=== PATIENT | male | born 1965 | race Caucasian/White ===

== ENCOUNTER 2017-02-24 10:22 | Inpatient (IN) | payer OTHER ==
[~2017-02-24] VITALS: Ht 182.9 cm; Wt 100.8 kg
[2017-02-24] VITALS (12 sets, daily range): BP systolic 114–178; BP diastolic 61–99; PULSE 77–108; RESP 14–24; TEMP 98–98.1; O2SAT 95–99
[2017-02-24] MEDS ORDERED: LORazepam 2 MG/ML VIAL ONE (10:29)
[2017-02-24] MEDS ORDERED: LORazepam 2 MG/ML VIAL IV PUSH ONE (10:30)
[2017-02-24] MEDS ORDERED: FOSPHENYTOIN INJ 1,000 MGPE in SODIUM CHLORIDE 0.9% INJ 50 ML IV ONE (10:45)
[2017-02-24] MEDS ORDERED: SODIUM CHLOR 0.9% 1000 ML INJ 1,000 ML IV SCH (10:45)
[2017-02-24] MEDS ORDERED: AMIODARONE INJ 150 MG in DEXTROSE 5% IN WATER 100ML INJ 97 ML IV ONE ×2 (10:45)
[2017-02-24] MEDS ORDERED: CANA1TAB8 PO (10:46)
--- NOTE | 2017-02-24 10:55 | RADRPT ---
EXAM DATE/TIME: 02/24/2017 10:30 [facility] COMPARISON: No previous studies available for comparison. INDICATIONS : Short of breath, seizure MEDICAL HISTORY : None. SURGICAL HISTORY : None. ENCOUNTER: Initial ACUITY: 1 day PAIN SCORE: Non-responsive. LOCATION: Bilateral chest FINDINGS: Underinflated AP view of the chest demonstrates cardiac silhouette size at the upper limits for gabriel l. There is mild airspace opacity in the lower lung zones bilaterally with appearance suggestive of a telectasis. No effusion, consolidation, or pneumothorax is visualized. Bones and soft tissues demonst rate no acute finding. CONCLUSION: Underinflated examination with atelectasis at the lung bases. Otherwise, no acute finding is identifi ed. Cardiac silhouette size is at the upper limits for normal. Roshan Hernandez MD on February 24, 2017 at 10:52 Board Certified Radiologist. This report was verified electronically.
--- NOTE | 2017-02-24 10:57 | PD ---
HPI Chief Complaint: Seizure Time Seen by Provider: 10:24 Travel History International Travel<30 days: No Contact w/Intl Traveler<30days: No Traveled to known affect area: No History of Present Illness HPI 51-year-old male was brought in by EMS for syncope, seizures and multifocal PVCs. 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 Patient started having elevated blood pressure, and started having frequent PVC and then had several seizure episodes and went unresponsive. EMS was called. Patient found to have multifocal PVCs. Patient also has recurrent seizure episodes. Patient was given Ativan IV and lidocaine IV prior to arrival. Upon arrival patient's lethargic however can answer questions appropriately. Patient denies any previous history of seizure. PFSH Past Medical History Diabetes: Yes Patient Takes Glucophage: Yes Seizures: Yes Influenza Vaccination: No Social History Alcohol Use: No Tobacco Use: No Substance Use: No Allergies-Medications (Allergen,Severity, Reaction): Coded Allergies: Daypro (Verified Allergy, Unknown, 02/24/17) Relafen (Verified Allergy, Unknown, 02/24/17) Reported Meds & Prescriptions Reported Meds & Active Scripts Active Reported Invokamet Xr (Canagliflozin-Metformin ER 24 HR) 150-1,000 mg Tab 1 Tab PO DAILY Review of Systems General / Constitutional: No: Fever Eyes: No: Visual changes HENT: No: Headaches Cardiovascular: No: Chest Pain or Discomfort Respiratory: No: Shortness of Breath Gastrointestinal: No: Abdominal Pain Genitourinary: No: Dysuria Musculoskeletal: No: Pain Skin: No Rash Neurologic: No: Weakness Psychiatric: No: Depression Endocrine: No: Polydipsia Hematologic/Lymphatic: No: Easy Bruising Physical Exam Narrative GENERAL: Well-nourished, well-developed patient. SKIN: Focused skin assessment warm/dry. HEAD: Normocephalic. EYES: No scleral icterus. No injection or drainage. Pupils 3 mm equal reactive. NECK: Supple, trachea midline. No JVD or lymphadenopathy. CARDIOVASCULAR: Regular rate and rhythm without murmurs, gallops, or rubs. RESPIRATORY: Breath sounds equal bilaterally. No accessory muscle use. GASTROINTESTINAL: Abdomen soft, non-tender, nondistended. MUSCULOSKELETAL: No cyanosis, or edema. BACK: Nontender without obvious deformity. No CVA tenderness. Neurologic exam: Patient is lethargic however answer questions appropriately. Patient can moves all extremity. No obvious focal neurological deficit. Data Data Last Documented VS Vital Signs Date Time Temp Pulse Resp B/P Pulse Ox O2 Delivery O2 Flow Rate FiO2 02/24/17 11:00 96 20 114/69 96 Nasal Cannula 3 02/24/17 10:27 98.0 Orders Lorazepam Inj (Ativan Inj) (02/24/17 10:29) Electrocardiogram (02/24/17 10:29) Complete Blood Count With Diff (02/24/17 10:29) Comprehensive Metabolic Panel (02/24/17 10:29) Creatine Kinase (Cpk) (02/24/17 10:29) Troponin I (02/24/17 10:29) Prothrombin Time / Inr (Pt) (02/24/17 10:29) Act Partial Throm Time (Ptt) (02/24/17 10:29) Urinalysis - C+S If Indicated (02/24/17 10:29) Magnesium (Mg) (02/24/17 10:29) Thyroid Stimulating Hormone (02/24/17 10:29) Phosphorus (Po4) (02/24/17 10:29) Chest, Single Ap (02/24/17 10:29) Ct Brain W/O Iv Contrast(Rout) (02/24/17 10:29) Iv Access Insert/Monitor (02/24/17 10:29) Ecg Monitoring (02/24/17 10:29) Oximetry (02/24/17 10:29) Drug Screen, Random Urine (02/24/17 10:29) Lorazepam Inj (Ativan Inj) (02/24/17 10:30) Sodium Chlor 0.9% 1000 Ml Inj (Ns 1000 M (02/24/17 10:45) ^ Medication Alert (02/24/17 10:36) ^ Discontinue (02/24/17 10:36) Amiodarone Inj (Cordarone Inj) (02/24/17 10:45) Amiodarone Inj (Cordarone Inj) (02/24/17 10:45) Vital Signs (Adult) DANNY.Q4H (02/24/17 10:36) Fosphenytoin Inj (Cerebyx Inj) (02/24/17 10:45) Labs Laboratory Tests Test 02/24/17 10:30 White Blood Count 7.5 TH/MM3 Red Blood Count 4.97 MIL/MM3 Hemoglobin 14.1 GM/DL Hematocrit 42.4 % Mean Corpuscular Volume 85.3 FL Mean Corpuscular Hemoglobin 28.4 PG Mean Corpuscular Hemoglobin 33.3 % Concent Red Cell Distribution Width 13.0 % Platelet Count 172 TH/MM3 Mean Platelet Volume 9.4 FL Neutrophils (%) (Auto) 64.0 % Lymphocytes (%) (Auto) 24.3 % Monocytes (%) (Auto) 8.4 % Eosinophils (%) (Auto) 2.7 % Basophils (%) (Auto) 0.6 % Neutrophils # (Auto) 4.8 TH/MM3 Lymphocytes # (Auto) 1.8 TH/MM3 Monocytes # (Auto) 0.6 TH/MM3 Eosinophils # (Auto) 0.2 TH/MM3 Basophils # (Auto) 0.0 TH/MM3 CBC Comment DIFF FINAL Differential Comment Prothrombin Time 10.2 SEC Prothromb Time International 0.9 RATIO Ratio Activated Partial 25.2 SEC Thromboplast Time Sodium Level 141 MEQ/L Potassium Level 3.9 MEQ/L Chloride Level 109 MEQ/L Carbon Dioxide Level 23.0 MEQ/L Anion Gap 9 MEQ/L Blood Urea Nitrogen 19 MG/DL Creatinine 0.76 MG/DL Estimat Glomerular Filtration 108 ML/MIN Rate Random Glucose 197 MG/DL Calcium Level 8.1 MG/DL Phosphorus Level 2.6 MG/DL Magnesium Level 2.3 MG/DL Total Bilirubin 0.5 MG/DL Aspartate Amino Transf 22 U/L (AST/SGOT) Alanine Aminotransferase 54 U/L (ALT/SGPT) Alkaline Phosphatase 85 U/L Total Creatine Kinase 269 U/L Troponin I LESS THAN 0.02 NG/ML Total Protein 6.9 GM/DL Albumin 3.5 GM/DL Thyroid Stimulating Hormone 1.020 uIU/ML [address] [place] [address] Medical Decision Making Medical Screen Exam Complete: Yes Emergency Medical Condition: Yes Interpretation(s) 10:57 AM. EKG shows sinus tachycardia with occasional PVCs. 1337 PM. Last Impressions Chest X-Ray 02/24/17 1029 Signed Impressions: Service Date/Time: February 10:30 - CONCLUSION: Underinflated examination with atelectasis at the lung bases. Otherwise, no acute finding is identified. Cardiac silhouette size is at the upper limits for normal. Roshan Hernandez MD 1337 PM. CBC within normal limit. CMP within normal limit. Glucose 197. Cardiac enzymes are normal. Differential Diagnosis Differential diagnoses including new onset seizure, TIA, CVA, electrolyte abnormality, arrhythmia, SD. Narrative Course 51-year-old male with syncope, seizure, multifocal PVCs. Patient was given Ativan and lidocaine IV by EMS. Amiodarone 150 mg IV bolus given. Amiodarone drip started. Ativan 2 mg IV given. Fosphenytoin 1 g IV given. Normal saline solution 100 cc an hour. Diagnosis Primary Impression: Cardiac arrhythmia Qualified Code: I49.8 - Other cardiac arrhythmia Additional Impression: New onset seizure Admitting Information Admitting Physician Requests: Admit Constantine Dill MD February 24, 2017 10:57
[2017-02-24 11:02] LABS: AUTOMATED NEUTROPHIL # 4.8 TH/MM3 (1.8-7.7); BASOPHIL % 0.6 % (0.0-2.0); EOSINOPHIL # 0.2 TH/MM3 (0-0.4); EOSINOPHIL % 2.7 % (0.0-4.0); HEMATOCRIT 42.4 % (39.0-51.0); HEMO FLAGS DIFF FINAL; LYMPH % 24.3 % (9.0-44.0); LYMPHOCYTE # 1.8 TH/MM3 (1.0-4.8); MEAN CELL VOLUME 85.3 FL (80.0-100.0); MEAN CORPUSCULAR HEMOGLOBIN 28.4 PG (27.0-34.0); MEAN CORPUSCULAR HGB CONC 33.3 % (32.0-36.0); MONO % 8.4 % (0.0-8.0); PLATELET COUNT 172 TH/MM3 (150-450); RED BLOOD COUNT 4.97 MIL/MM3 (4.50-5.90); WHITE BLOOD COUNT 7.5 TH/MM3 (4.0-11.0)
[2017-02-24] MEDS: AMIODARONE INJ 450 MG in DEXTROSE 5% IN WATE(EXCEL) INJ 250 ML IV SCH ×4 (11:06→22:30)
[2017-02-24 11:11] LABS: APTT (PATIENT) 25.2 SEC (24.3-30.1); INTERNATIONAL NORMALIZED RATIO 0.9 RATIO; PROTHROMBIN TIME - PATIENT 10.2 SEC (9.8-11.6)
[2017-02-24 11:16] LABS: ANION GAP 9 MEQ/L (5-15); AST (GOT) 22 U/L (15-37); BLOOD UREA NITROGEN 19 MG/DL (7-18); CHLORIDE 109 MEQ/L (98-107); GLOMERULAR FILTRATION RATE 108 ML/MIN (>89); MAGNESIUM 2.3 MG/DL (1.5-2.5); POTASSIUM 3.9 MEQ/L (3.5-5.1); SODIUM (NA) 141 MEQ/L (136-145)
[2017-02-24 11:26] LABS: ALKALINE PHOSPHATASE 85 U/L (45-117); ALT (GPT) 54 U/L (12-78); CREATINE KINASE 269 U/L (39-308); TOTAL BILIRUBIN ADULT 0.5 MG/DL (0.2-1.0)
--- NOTE | 2017-02-24 13:12 | RADRPT ---
EXAM DATE/TIME: 02/24/2017 11:47 [facility] COMPARISON: No previous studies available for comparison. INDICATIONS : Seizure x 2 RADIATION DOSE: 51.13 CTDIvol (mGy) MEDICAL HISTORY : Seizures. SURGICAL HISTORY : None. ENCOUNTER: Initial ACUITY: 1 day PAIN SCALE: 6/10 LOCATION: Bilateral cranial TECHNIQUE: Multiple contiguous axial images were obtained of the head. Using automated exposure control and adj ustment of the mA and/or kV according to patient size, radiation dose was kept as low as reasonably a chievable to obtain optimal diagnostic quality images. FINDINGS: CEREBRUM: The ventricles are normal for age. No evidence of midline shift, mass lesion, hemorrhage or acute in farction. No extra-axial fluid collections are seen. POSTERIOR FOSSA: The cerebellum and brainstem are intact. The 4th ventricle is midline. The cerebellopontine angle i s unremarkable. EXTRACRANIAL: The visualized portion of the orbits is intact. SKULL: The calvaria is intact. No evidence of skull fracture. CONCLUSION: 1. No acute intracranial abnormality is identified. Juan Mckenna MD on February 24, 2017 at 13:05 Board Certified Radiologist. This report was verified electronically.
--- NOTE | 2017-02-24 14:19 | HHI.HP ---
HPI Service Family Medicine Primary Care Physician Unknown Admission Diagnosis cardiac arrhythmia. New-onset seizure. Diagnoses: International Travel<30 Days: No Contact w/Intl Traveler<30days: No Known Affected Area: No History of Present Illness Patient is a 51 year old male with a PMH significant for HTN, HL, and DM who presents via [facility] after multiple seizures during nuclear stress test. History obtained while patient is post-ictal. Per ED physician, he was at [place] outpatient facility undergoing stress test with Dr. Solis, when he had syncope and seizure. He was noted to have [facility] administered lidocaine 100mg and Ativan 4mg. Patient was brought to ED and has had a total of 5-6 total seizures today. He is current s/p loading dose of fosphenytoin and amiodarone, and is currently receiving amiodarone drip. He endorses non-specific chest pain and allergies noted in the chart but is post -ictal so no other history could be obtained. (Merly Gomez MD R1) Review of Systems ROS Limitations: Altered Mental Status Constitutional: DENIES: Fever, Chills Cardiovascular: COMPLAINS OF: Chest pain (did not describe) (Merly Gomez MD R1) Past Family Social History Past Medical History Diabetes HTN HL Past Surgical History Denies a history of surgery Reported Medications She reports taking Invokamet, lisinopril, and Lipitor Reported Meds & Active Scripts Active Reported Invokamet Xr (Canagliflozin-Metformin ER 24 HR) 150-1,000 mg Tab 1 Tab PO DAILY (Merly Gomez MD R1) Allergies: Coded Allergies: Daypro (Verified Allergy, Unknown, 02/24/17) Relafen (Verified Allergy, Unknown, 02/24/17) Active Ordered Medications Reported Meds & Active Scripts Active Reported Invokamet Xr (Canagliflozin-Metformin ER 24 HR) 150-1,000 mg Tab 1 Tab PO DAILY Family History Denies FH of seizures Social History Unable to obtain (Merly Gomez MD R1) Physical Exam Vital Signs Vital Signs Date Time Temp Pulse Resp B/P Pulse Ox O2 Delivery O2 Flow Rate FiO2 02/24/17 13:00 77 22 132/79 98 Nasal Cannula 3 02/24/17 11:00 96 20 114/69 96 Nasal Cannula 3 02/24/17 10:38 102 18 98 Nasal Cannula 2 02/24/17 10:38 97 Nasal Cannula 3 02/24/17 10:27 98.0 108 22 177/99 99 Physical Exam GENERAL: Patient is post ictal. He is an overweight male who wakes up and answers questions coherently but falls asleep quickly. He is protecting his airway at this time. SKIN: Warm and dry. No obvious rashes or ecchymoses. HEAD: Atraumatic. Normocephalic. Denies cervical tenderness. EYES: Pupils equal and round. No scleral icterus. No injection or drainage. ENT: No nasal bleeding or discharge. Mucous membranes pink and moist. NECK: Trachea midline. No JVD. Large neck. CARDIOVASCULAR: On telemetry, patient has occasional PVC but otherwise normal rate and rhythm. No murmurs noted. RESPIRATORY: No accessory muscle use. Clear to auscultation. Breath sounds equal bilaterally. GASTROINTESTINAL: Abdomen soft, non-tender, nondistended. Hepatic and splenic margins not palpable. MUSCULOSKELETAL: Extremities without clubbing, cyanosis, or edema. No obvious deformities. NEUROLOGICAL: Patient is postictal. He is alert to name, date of , context. He appears somewhat confused. He knows he is in a hospital. PSYCHIATRIC: Appropriate mood and affect; insight and judgment normal. Laboratory Laboratory Tests Test 02/24/17 10:30 White Blood Count 7.5 Red Blood Count 4.97 Hemoglobin 14.1 Hematocrit 42.4 Mean Corpuscular Volume 85.3 Mean Corpuscular Hemoglobin 28.4 Mean Corpuscular Hemoglobin 33.3 Concent Red Cell Distribution Width 13.0 Platelet Count 172 Mean Platelet Volume 9.4 Neutrophils (%) (Auto) 64.0 Lymphocytes (%) (Auto) 24.3 Monocytes (%) (Auto) 8.4 Eosinophils (%) (Auto) 2.7 Basophils (%) (Auto) 0.6 Neutrophils # (Auto) 4.8 Lymphocytes # (Auto) 1.8 Monocytes # (Auto) 0.6 Eosinophils # (Auto) 0.2 Basophils # (Auto) 0.0 CBC Comment DIFF FINAL Differential Comment Prothrombin Time 10.2 Prothromb Time International 0.9 Ratio Activated Partial 25.2 Thromboplast Time Sodium Level 141 Potassium Level 3.9 Chloride Level 109 Carbon Dioxide Level 23.0 Anion Gap 9 Blood Urea Nitrogen 19 Creatinine 0.76 Estimat Glomerular Filtration 108 Rate Random Glucose 197 Calcium Level 8.1 Phosphorus Level 2.6 Magnesium Level 2.3 Total Bilirubin 0.5 Aspartate Amino Transf 22 (AST/SGOT) Alanine Aminotransferase 54 (ALT/SGPT) Alkaline Phosphatase 85 Total Creatine Kinase 269 Troponin I LESS THAN 0.02 Total Protein 6.9 Albumin 3.5 Thyroid Stimulating Hormone 1.020 3rd Gen (Merly Gomez MD R1) Result Diagram: 02/24/17 1030 02/24/17 1030 Imaging Last Impressions Head CT 02/24/17 1029 Signed Impressions: Service Date/Time: February 11:47 - CONCLUSION: 1. No acute intracranial abnormality is identified. Juan Mckenna MD Chest X-Ray 02/24/17 1029 Signed Impressions: Service Date/Time: February 10:30 - CONCLUSION: Underinflated examination with atelectasis at the lung bases. Otherwise, no acute finding is identified. Cardiac silhouette size is at the upper limits for normal. Roshan Hernandez MD (Merly Gomez MD R1) Assessment and Plan Assessment and Plan 51-year-old male with a history of HTN, HL, and DM who presents after multiple seizures during nuclear stress test. Will be admitted to inpatient for further cardiac and neurological workup for new onset seizures. Seizures are possibly arrhythmogenic given that seizures were improved after lidocaine administration , however, he is also status post multiple doses of Ativan. Code Status Full code, unable to confirm with patient given he is postictal and confused Discussed Condition With Seen and discussed with Dr. Yuan (Merly Gomez MD R1) Attending Attestation Patient seen and examined. Case reviewed and discussed with the resident team. Agree with plan of care as discussed with me and documented in the resident note. pt seen in ED but post ictal and s/p ativan so not able to get meaningful history from pt at that time (Lizbeth Brown MD) Problem List: (1) New onset seizure Status: Acute Plan: Patient with new onset seizures during nuclear cardiac stress test as outpatient. He required antiarrhythmic medications as well as benzos to improve his symptoms. * Admit to inpatient * Cardiology consult * Neurology consult - recommended continuing benzos when necessary and Dilantin 100 mg TID. Stat EEG ordered neurology request * Bedrest, seizure and fall precautions * Telemetry * Drug screen in process * TSH within normal limits, electrolytes otherwise unremarkable (corrected calcium 8.5) * Neuro checks q4hr * Prolactin, EtOH, magnesium, CRP pending Hospital course: * Lorazepam 2 mg 2 in ED * Fosphenytoin loading dose administered in ED * Amiodarone 150 mg loading dose with gtt started in ED * CT head without contrast unremarkable (2) Cardiac arrhythmia Status: Acute Plan: Patient presents after possible arrhythmogenic seizures during nuclear stress test. EKG showing occasional PVCs without obvious ST changes. Initial troponin negative. * Trend cardiac enzymes and EKG, initial is negative (3) Diabetes mellitus Status: Chronic Plan: Patient is a chronic diabetic with glipizide at home. * Low-dose sliding scale (4) Hyperlipidemia Status: Acute (5) Hypertension Status: Acute Plan: Patient states he was on lisinopril with unknown dose. * Will start lisinopril at 20mg daily starting 02/25/17. * Clonidine 0.1mg q6hr PRN SBP >180/100 (6) Fluids/Electrolytes/Nutrition/Prophylaxis Status: Acute Plan: Fluids: MIVF, NS at 125 mL/hr Electrolytes: monitor and replete as needed Nutrition: NPO pending a bedside swallow, formal swallow evaluation is also ordered DVT Prophylaxis: Heparin 5000U subQ q8hr/bilateral SCDs GI Prophylaxis: Not indicated (Merly Gomez MD R1) Physician Certification 2 Midnight Certification Type: Admission for Inpatient Services Order for Inpatient Services The services are ordered in accordance with Medicare regulations or non- Medicare payer requirements, as applicable. In the case of services not specified as inpatient-only, they are appropriately provided as inpatient services in accordance with the 2-midnight benchmark. Estimated LOS (days): 3 days is the estimated time the patient will need to remain in the hospital, assuming treatment plan goals are met and no additional complications. Post-Hospital Plan: Not yet determined (Merly Gomez MD R1) Problem Qualifiers (1) Cardiac arrhythmia: Qualified Code: I49.8 - Other cardiac arrhythmia (2) Diabetes mellitus: Qualified Code: E11.8 - Type 2 diabetes mellitus with complication, without long-term current use of insulin (3) Hyperlipidemia: Qualified Code: E78.00 - Pure hypercholesterolemia (4) Hypertension: Qualified Code: I10 - Essential hypertension Merly Gomez MD R1 February 24, 2017 14:19 Lizbeth Brown MD February 25, 2017 13:11
[2017-02-24] MEDS ORDERED: CHLORHEXIDINE GLUCONATE 2 % 1 PACK (2 CLOTHS) TOP PRN (14:30)
[2017-02-24] MEDS ORDERED: MISCELLANEOUS NURSING INFORMATION XX SCH (14:30)
[2017-02-24] MEDS ORDERED: SODIUM CHLORIDE 0.9% FLUSH 10 ML FLUSH IV FLUSH PRN ×3 (14:30→15:30)
[2017-02-24] MEDS: SODIUM CHLOR 0.9% 1000 ML INJ 1,000 ML IV SCH ×2 (15:00→22:31)
[2017-02-24] MEDS ORDERED: ONDANSETRON HCL 4 MG/2 ML VIAL IVP PRN (15:15)
[2017-02-24] MEDS ORDERED: ACETAMINOPHEN 325 MG TAB PO PRN (15:15)
[2017-02-24] MEDS: HEPARIN SODIUM - SQ 10,000 UNITS/ML VIAL SQ SCH ×2 (15:16→22:30)
[2017-02-24] MEDS: PANTOPRAZOLE SODIUM 40 MG VIAL IV SCH (15:16)
[2017-02-24] MEDS: PHENYTOIN INJ 100 MG/2 ML VIAL IV SCH ×2 (15:30→22:30)
[2017-02-24 16:13] LABS: BLOOD, URINE NEG (NEG); COMMENT (UR) CULT NOT INDICATED; CULTURE IF INDICATED CULT NOT INDICATED; GLUCOSE,URINE 1000 mg/dL (NEG); KETONE, URINE 80 mg/dL (NEG); NITRITE,URINE NEG (NEG); URINE COLOR YELLOW (YELLW/STRAW)
[2017-02-24] MEDS ORDERED: DEXTROSE 50% IN WATER 50 ML VIAL(D50) IV PUSH PRN (17:30)
[2017-02-24] MEDS ORDERED: GLUCAGON 1 MG/ML VIAL OTHER PRN (17:30)
[2017-02-24 17:40] LABS: MAGNESIUM 2.5 MG/DL (1.5-2.5)
[2017-02-24] MEDS ORDERED: ENALAPRILAT 1.25 MG/ML VIAL IV PUSH PRN (17:45)
--- NOTE | 2017-02-24 17:50 | PD.CONS ---
HPI Service Cardiology Consult Requested By ER Primary Care Physician Unknown History of Present Illness 51 y/o M with cardiac history significant for HTN, HL, and DM who presents to the ER via [facility] after multiple seizures during nuclear stress test. According to Dr. Rosado patient he was undergoing treadmill exercise stress test, when he all of a sudden had syncope and seizure like activity, vehicle monitor technician showed multiple PVC's he did not undergo the nuclear portion of it. According to report he had 5-6 total seizures. In the ER he loaded with fosphenytoin and amiodarone. He denies chest pain, SOB, palpitations. EKG unremarkable. Neurology following Review of Systems Consitutional: DENIES: Fatigue, Fever, Chills, Weight gain, Weight loss Eyes: DENIES: Amaurosis Fugax, Change in vision HEENT: DENIES: Lightheadedness, Change in hearing Respiratory: DENIES: See HPI, Cough, Snoring, Shortness of breath, Wheezing, Sputum production Cardiovascular: DENIES: See HPI, Chest pain, Palpitations, Syncope, Tachycardia Gastrointestinal: DENIES: Nausea, Vomiting, Change in bowel habits, Reflux, Bloody stools, Melena Genitourinary: DENIES: Urinary incontinence, Difficulty voiding Integumentary: DENIES: Rash Neurologic: DENIES: Tingling or numbness, Memory problems, Poor Balance, Stroke symptoms Musculoskeletal: DENIES: Joint pain, Muscle pain, Limited range of motion, Back pain Psychiatric: DENIES: Anxiety, Depression, Sleep disturbances Hematologic: DENIES: Bruising tendencies, Bleeding tendencies Endocrine: DENIES: Weight gain, Weight loss, Thyroid disease Past Family Social History Allergies: Coded Allergies: Daypro (Verified Allergy, Unknown, 02/24/17) Relafen (Verified Allergy, Unknown, 02/24/17) Past Medical History Diabetes HTN HL Past Surgical History None Reported Medications Reported Meds & Active Scripts Active Reported Invokamet Xr (Canagliflozin-Metformin ER 24 HR) 150-1,000 mg Tab 1 Tab PO DAILY Active Ordered Medications Current Medications Medications (Trade) Dose Ordered Sig/[place] Route Start Time Stop Time Status Last Admin (Cordarone Inj/ D5W ([place]) Inj) 259 ml @ 0 mls/hr CONTINUOUS IV 02/24/17 10:45 02/24/17 11:06 (Protonix Inj) 40 mg DAILY IV 02/24/17 15:00 02/24/17 15:16 (Heparin Inj) 5,000 units Q8HR SQ 02/24/17 14:45 02/24/17 15:16 Miscellaneous Information 1 Q361D XX 02/24/17 14:30 (Chlorhexidine 2% Cloth) 3 pack Taper DAILY@04 TOP 02/25/17 04:00 02/21/18 03:59 Chlorhexidine Gluconate 3 pack 3 pack UNSCH PRN TOP 02/24/17 14:30 (NS 1000 ml Inj) 1,000 ml @ 125 mls/hr Q8H IV 02/24/17 15:00 (Dilantin Inj) 100 mg Q8HR IV 02/24/17 15:00 02/24/17 15:30 (NS Flush) 2 ml UNSCH PRN IV FLUSH 02/24/17 15:30 (NS Flush) 2 ml BID IV FLUSH 02/24/17 21:00 (D50w (Vial) Inj) 25 ml UNSCH PRN IV PUSH 02/24/17 17:30 (Glucagon Inj) 1 mg UNSCH PRN OTHER 02/24/17 17:30 Family History Adopted Social History No Alcohol No Illicit Drug Use No Smoking Physical Exam Vital Signs Vital Signs Date Time Temp Pulse Resp B/P Pulse Ox O2 Delivery O2 Flow Rate FiO2 02/24/17 17:00 92 22 162/89 98 Nasal Cannula 3 02/24/17 16:00 88 22 166/78 98 Nasal Cannula 3 02/24/17 15:00 80 22 125/76 98 Nasal Cannula 3 02/24/17 14:00 80 24 118/61 98 Nasal Cannula 3 02/24/17 13:00 77 22 132/79 98 Nasal Cannula 3 02/24/17 11:00 96 20 114/69 96 Nasal Cannula 3 02/24/17 10:38 102 18 98 Nasal Cannula 2 02/24/17 10:38 97 Nasal Cannula 3 02/24/17 10:27 98.0 108 22 177/99 99 Physical Exam GENERAL: Well-nourished, well-developed patient. SKIN: Warm and dry. HEAD: Normocephalic. EYES: No scleral icterus. No injection or drainage. NECK: Supple, trachea midline. No JVD or lymphadenopathy. CARDIOVASCULAR: Regular rate and rhythm without murmurs, gallops, or rubs. RESPIRATORY: Breath sounds equal bilaterally. No accessory muscle use. GASTROINTESTINAL: Abdomen soft, non-tender, nondistended. EXTREMITIES: No cyanosis, or edema. Laboratory Laboratory Tests Test 02/24/17 02/24/17 10:30 15:45 White Blood Count 7.5 Red Blood Count 4.97 Hemoglobin 14.1 Hematocrit 42.4 Mean Corpuscular Volume 85.3 Mean Corpuscular Hemoglobin 28.4 Mean Corpuscular Hemoglobin 33.3 Concent Red Cell Distribution Width 13.0 Platelet Count 172 Mean Platelet Volume 9.4 Neutrophils (%) (Auto) 64.0 Lymphocytes (%) (Auto) 24.3 Monocytes (%) (Auto) 8.4 Eosinophils (%) (Auto) 2.7 Basophils (%) (Auto) 0.6 Neutrophils # (Auto) 4.8 Lymphocytes # (Auto) 1.8 Monocytes # (Auto) 0.6 Eosinophils # (Auto) 0.2 Basophils # (Auto) 0.0 CBC Comment DIFF FINAL Differential Comment Prothrombin Time 10.2 Prothromb Time International 0.9 Ratio Activated Partial 25.2 Thromboplast Time Sodium Level 141 Potassium Level 3.9 Chloride Level 109 Carbon Dioxide Level 23.0 Anion Gap 9 Blood Urea Nitrogen 19 Creatinine 0.76 Estimat Glomerular Filtration 108 Rate Random Glucose 197 Calcium Level 8.1 Phosphorus Level 2.6 Magnesium Level 2.3 Total Bilirubin 0.5 Aspartate Amino Transf 22 (AST/SGOT) Alanine Aminotransferase 54 (ALT/SGPT) Alkaline Phosphatase 85 Total Creatine Kinase 269 Troponin I LESS THAN 0.02 Total Protein 6.9 Albumin 3.5 Thyroid Stimulating Hormone 1.020 3rd Gen Urine Color YELLOW Urine Turbidity CLEAR Urine pH 5.0 Urine Specific [place] 1.037 Urine Protein NEG Urine Glucose (UA) 1000 Urine Ketones 80 Urine Occult Blood NEG Urine Nitrite NEG Urine Bilirubin NEG Urine Urobilinogen LESS THAN 2.0 Urine Leukocyte Esterase NEG Urine RBC 1 Urine WBC LESS THAN 1 Microscopic Urinalysis Comment CULT NOT INDICATED Result Diagram: 02/24/17 1030 02/24/17 1030 Imaging Last Impressions Head CT 02/24/17 1029 Signed Impressions: Service Date/Time: February 11:47 - CONCLUSION: 1. No acute intracranial abnormality is identified. Juan Mckenna MD Chest X-Ray 02/24/17 1029 Signed Impressions: Service Date/Time: February 10:30 - CONCLUSION: Underinflated examination with atelectasis at the lung bases. Otherwise, no acute finding is identified. Cardiac silhouette size is at the upper limits for normal. Roshan Hernandez MD Assessment and Plan Problem List: (1) New onset seizure Assessment and Plan: 51 y/o M with admitted with ?new onset seizures vs. syncope during exercise stress test, multiple PVC's. Unclear etiology. He has no CV complaints. Cardiac markers negative so far. Agree with admission to Telemetry floor to r/o GA, blood work, observation and neurology consult. Cardiac workup on hold. Recommendations 1. Admit to Telemetry floor 2. Cycle cardiac markers 3. Neurology Consult 4. Cont home cardiac home medications Further therapy to be determine (2) Diabetes mellitus (3) Cardiac arrhythmia (4) Hyperlipidemia (5) Hypertension (6) Fluids/Electrolytes/Nutrition/Prophylaxis Problem Qualifiers (1) Diabetes mellitus: Qualified Code: E11.8 - Type 2 diabetes mellitus with complication, without long-term current use of insulin (2) Cardiac arrhythmia: Qualified Code: I49.8 - Other cardiac arrhythmia (3) Hyperlipidemia: Qualified Code: E78.00 - Pure hypercholesterolemia (4) Hypertension: Qualified Code: I10 - Essential hypertension Israel Birch MD February 24, 2017 17:50
--- NOTE | 2017-02-24 18:01 | MB ---
cc: LIDA PACE MD DATE OF CONSULTATION 02/24/17 HISTORY He is seen in neurological consultation. He is a 51-year-old patient who was having a nuclear stress test with the document imaging manager and apparently had syncope and seizure-like activity. He was transferred to the emergency room. He may have been given lidocaine and also Ativan. In the emergency room, he continued to have these recurrent seizure-like activity that seemed to be correlated with PVCs. He had multiple events and he was given Ativan on multiple occasions. Subsequently, he was given fosphenytoin and amiodarone. I saw him in the emergency room and I saw some brief trembling involving upper and lower extremities when I woke him up and this was seen in another occasion when some mild trembling activity was noted. According to the staff even when the patient had some of this seizure-like activity, he was able to respond to them as they were questioning him about allergies. The patient has no prior history of seizures. There is history of diabetes and hypertensive disease. He apparently takes Lipitor and lisinopril. When I saw him in the emergency room, he was asleep and he was awakened and then became responsive. He was only partially alert. He was never fully alert. He knew his age, knew the place and had some insight of what happened in the doctor's office today. He followed simple commands, moved all four extremities. He gripped and he lifted the lower extremities on request. He gazed to the right and left and was able to count fingers appropriately. No facial weakness. No evidence of tongue injury. Speech was mildly dysarthric as he was "groggy". His reflexes were essentially absent throughout. Plantar response is flexor. IMAGING STUDIES A CT brain was negative for acute process. LABORATORY DATA CBC showed essentially normal findings. Sodium, potassium normal. Glucose 197, BUN 19, creatinine 0.76. ASSESSMENT Seizure-like activity that started during an apparent nuclear stress testing by the document imaging manager. He may have been given lidocaine along with Ativan. When I saw him, he was still having some of these spells, I doubt a true seizure. He has been given fosphenytoin and for now would continue with this, but I had spoken with the ED physician and we requested an EEG on him. We will monitor and see how he progresses. We might arrange MRI, Dilantin levels, etc. I will follow the neurological course. Thank you for asking us to assist in his care. MD JOHN Grayson/ /4:53 PM /5:42 PM
[2017-02-24 18:28] LABS: CREATINE KINASE 236 U/L (39-308)
[2017-02-24 18:41] LABS: CKMB 4.8 NG/ML (0.5-3.6)
[2017-02-24] MEDS ORDERED: SODIUM CHLORIDE 0.9% FLUSH 10 ML FLUSH IV FLUSH SCH ×2 (21:00)
[2017-02-24] MEDS: SODIUM CHLORIDE 0.9% FLUSH 10 ML FLUSH IV FLUSH SCH (21:00)
[2017-02-24] MEDS: INSULIN ASPART SUPPLEMENTAL SCALE SQ SCH (21:00)
[2017-02-24 23:19] LABS: CREATINE KINASE 173 U/L (39-308)
[2017-02-24 23:27] LABS: AMPHETAMINE, URINE NEG (NEG); BARBITURATES, URINE NEG (NEG); COCAINE, URINE NEG (NEG)
[2017-02-24 23:31] LABS: CKMB 3.7 NG/ML (0.5-3.6)
[2017-02-25] VITALS (12 sets, daily range): BP systolic 114–154; BP diastolic 64–94; PULSE 70–93; RESP 16–20; TEMP 98.2–99.3; O2SAT 96–100
[2017-02-25] MEDS ORDERED: CHLORHEXIDINE GLUCONATE 2 % 1 PACK (2 CLOTHS) TOP SCH (04:00)
[2017-02-25] MEDS: HEPARIN SODIUM - SQ 10,000 UNITS/ML VIAL SQ SCH ×3 (05:11→20:58)
[2017-02-25] MEDS: PHENYTOIN INJ 100 MG/2 ML VIAL IV SCH ×3 (05:11→20:58)
[2017-02-25 05:43] LABS: AUTOMATED NEUTROPHIL # 7.7 TH/MM3 (1.8-7.7); BASOPHIL # 0.1 TH/MM3 (0-0.2); BASOPHIL % 0.7 % (0.0-2.0); EOSINOPHIL # 0.2 TH/MM3 (0-0.4); EOSINOPHIL % 2.1 % (0.0-4.0); HEMATOCRIT 41.1 % (39.0-51.0); HEMO FLAGS DIFF FINAL; LYMPH % 11.9 % (9.0-44.0); LYMPHOCYTE # 1.2 TH/MM3 (1.0-4.8); MEAN CELL VOLUME 86.7 FL (80.0-100.0); MEAN CORPUSCULAR HEMOGLOBIN 28.8 PG (27.0-34.0); MEAN CORPUSCULAR HGB CONC 33.2 % (32.0-36.0); MONO % 8.7 % (0.0-8.0); NEUT % 76.6 % (16.0-70.0); PLATELET COUNT 188 TH/MM3 (150-450); RED BLOOD COUNT 4.74 MIL/MM3 (4.50-5.90); RED CELL DISTRIBUTION WIDTH 12.7 % (11.6-17.2); WHITE BLOOD COUNT 10.1 TH/MM3 (4.0-11.0)
[2017-02-25 06:15] LABS: BICARBONATE 19.3 MEQ/L (21.0-32.0); POTASSIUM 4.2 MEQ/L (3.5-5.1)
[2017-02-25] MEDS: INSULIN ASPART SUPPLEMENTAL SCALE SQ SCH ×4 (06:29→20:16)
--- NOTE | 2017-02-25 07:33 | MG ---
cc: MARISSA VILLASEÑOR Lab No: [id number] Date: 02/25/2017 Age: Sex: M Photic stimulation was done. Hyperventilation was not done. Syncopal episode, PVCs, new-onset seizure. Dilantin, status post Ativan 4 mg. DESCRIPTION The recording shows diffuse beta rhythms. 10 Hz, 40-50 microvolt posterior rhythm is at times seen. The recording overall is synchronous and symmetric. No epileptiform or seizure activity was noted. There were no hemisphere asymmetries. Photic stimulation was performed without significant posterior driving. IMPRESSION Normal awake EEG. No evidence for a focal or diffuse abnormality. MD ELVER Blank/OSEAS /7:11 AM /7:27 AM
[2017-02-25] MEDS: SODIUM CHLORIDE 0.9% FLUSH 10 ML FLUSH IV FLUSH SCH ×2 (09:00→20:12)
[2017-02-25] MEDS: SODIUM CHLOR 0.9% 1000 ML INJ 1,000 ML IV SCH ×3 (09:05→23:00)
[2017-02-25] MEDS: LISINOPRIL 20 MG TAB PO SCH (09:06)
[2017-02-25] MEDS: PANTOPRAZOLE SODIUM 40 MG VIAL IV SCH (09:06)
--- NOTE | 2017-02-25 10:10 | HHI.HP ---
HPI Service Family Medicine Primary Care Physician Unknown Admission Diagnosis cardiac arrhythmia. New-onset seizure. Diagnoses: (1) New onset seizure Diagnosis: Principal (2) Cardiac arrhythmia Diagnosis: Principal (3) Diabetes mellitus Diagnosis: Principal (4) Hyperlipidemia Diagnosis: Principal (5) Hypertension Diagnosis: Principal (6) Fluids/Electrolytes/Nutrition/Prophylaxis Diagnosis: Principal International Travel<30 Days: No Contact w/Intl Traveler<30days: No Known Affected Area: No History of Present Illness Mr Dukes is a 51 year old male with a PMH significant for HTN, HL, and DM who presented via [facility] after multiple seizures during nuclear stress test. Per ED physician, he was at [place] [facility] undergoing stress test with Dr. Solis, when he had syncope and seizure. He was noted to have EVAC administered lidocaine 100mg and Ativan 4mg. Patient was brought to ED and has had a total of 5-6 total seizures the day of admission seemingly one right after the other but none since he was given antiseizure meds. He is current s/p loading dose of fosphenytoin and amiodarone, and is currently receiving amiodarone drip though that is stopped today He endorsed non-specific chest pain and allergies noted in the chart but was post-ictal so no other history could be obtained. Even today he does not remember much of what happened and states he received 2 injections- possibly adenosine and thallium and then went "out" where he doesn't remember anything else until he woke up in the hospital. He denies any personal or family history of seizures or prior head injury, etc. Review of Systems ROS Limitations: Poor Historian Constitutional: COMPLAINS OF: Fatigue, DENIES: Fever Respiratory: DENIES: Shortness of breath Cardiovascular: COMPLAINS OF: Syncope, DENIES: Chest pain, Lower Extremity Edema Gastrointestinal: DENIES: Abdominal pain, Difficulty Swallowing Neurologic: COMPLAINS OF: Seizures, DENIES: Abnormal gait, Headache, Localized weakness, Speech Problems Psychiatric: DENIES: Hallucinations, Agitation Other ROS Limitations: Altered Mental Status Constitutional: DENIES: Fever, Chills Cardiovascular: COMPLAINS OF: Chest pain (did not describe) Past Family Social History Past Medical History Diabetes HTN HL Past Surgical History Denies a history of surgery Allergies: Coded Allergies: Daypro (Verified Allergy, Unknown, 02/24/17) Relafen (Verified Allergy, Unknown, 02/24/17) Family History Denies FH of seizures Social History per ED history no alcohol, tobacco or illicit substances Physical Exam Vital Signs Vital Signs Date Time Temp Pulse Resp B/P Pulse Ox O2 Delivery O2 Flow Rate FiO2 02/25/17 08:27 100 Nasal Cannula 2.00 02/25/17 04:00 93 02/25/17 04:00 98.6 87 18 130/65 97 02/25/17 00:00 75 02/25/17 00:00 98.4 72 18 114/64 96 02/24/17 20:28 97 3.00 02/24/17 20:00 98.1 82 18 138/73 95 02/24/17 20:00 82 02/24/17 20:00 99 Nasal Cannula 2.00 02/24/17 19:06 84 14 160/89 99 Nasal Cannula 2 02/24/17 18:00 91 21 178/91 99 Nasal Cannula 3 02/24/17 17:00 92 22 162/89 98 Nasal Cannula 3 02/24/17 16:00 88 22 166/78 98 Nasal Cannula 3 02/24/17 15:00 80 22 125/76 98 Nasal Cannula 3 02/24/17 14:00 80 24 118/61 98 Nasal Cannula 3 02/24/17 13:00 77 22 132/79 98 Nasal Cannula 3 02/24/17 11:00 96 20 114/69 96 Nasal Cannula 3 02/24/17 10:38 102 18 98 Nasal Cannula 2 02/24/17 10:38 97 Nasal Cannula 3 02/24/17 10:27 98.0 108 22 177/99 99 Physical Exam GENERAL: Patient is comfortable in bed this am with no pain or seizure activity. He is an overweight male well nourished SKIN: Warm and dry. No obvious rashes or ecchymoses. HEAD: Atraumatic. Normocephalic. Denies cervical tenderness. EYES: Pupils equal and round. No scleral icterus. No injection or drainage. ENT: No nasal bleeding or discharge. Mucous membranes pink and moist. NECK: Trachea midline. No JVD. Large neck. CARDIOVASCULAR: On telemetry, patient has occasional PVC but otherwise normal rate and rhythm. No murmurs noted. RESPIRATORY: No accessory muscle use. Clear to auscultation. Breath sounds equal bilaterally. GASTROINTESTINAL: Abdomen soft, non-tender, nondistended. Hepatic and splenic margins not palpable. MUSCULOSKELETAL: Extremities without clubbing, cyanosis, or edema. No obvious deformities. NEUROLOGICAL: Patient is alert to name, date of , context. He knows he is in a hospital. PSYCHIATRIC: Appropriate mood and affect; insight and judgment normal. Laboratory Laboratory Tests Test 02/24/17 02/24/17 02/24/17 02/24/17 10:30 15:40 15:45 20:00 White Blood Count 7.5 Red Blood Count 4.97 Hemoglobin 14.1 Hematocrit 42.4 Mean Corpuscular Volume 85.3 Mean Corpuscular Hemoglobin 28.4 Mean Corpuscular Hemoglobin 33.3 Concent Red Cell Distribution Width 13.0 Platelet Count 172 Mean Platelet Volume 9.4 Neutrophils (%) (Auto) 64.0 Lymphocytes (%) (Auto) 24.3 Monocytes (%) (Auto) 8.4 Eosinophils (%) (Auto) 2.7 Basophils (%) (Auto) 0.6 Neutrophils # (Auto) 4.8 Lymphocytes # (Auto) 1.8 Monocytes # (Auto) 0.6 Eosinophils # (Auto) 0.2 Basophils # (Auto) 0.0 CBC Comment DIFF FINAL Differential Comment Prothrombin Time 10.2 Prothromb Time International 0.9 Ratio Activated Partial 25.2 Thromboplast Time Sodium Level 141 Potassium Level 3.9 Chloride Level 109 Carbon Dioxide Level 23.0 Anion Gap 9 Blood Urea Nitrogen 19 Creatinine 0.76 Estimat Glomerular Filtration 108 Rate Random Glucose 197 Calcium Level 8.1 Phosphorus Level 2.6 Magnesium Level 2.3 2.5 Total Bilirubin 0.5 Aspartate Amino Transf 22 (AST/SGOT) Alanine Aminotransferase 54 (ALT/SGPT) Alkaline Phosphatase 85 Total Creatine Kinase 269 236 Troponin I LESS THAN 0.02 LESS THAN 0.02 Total Protein 6.9 Albumin 3.5 Thyroid Stimulating Hormone 1.020 3rd Gen Serum Osmolality 306 Creatine Kinase MB 4.8 C-Reactive Protein 0.44 Ethyl Alcohol Level LESS THAN 3 Urine Color YELLOW Urine Turbidity CLEAR Urine pH 5.0 Urine Specific [place] 1.037 Urine Protein NEG Urine Glucose (UA) 1000 Urine Ketones 80 Urine Occult Blood NEG Urine Nitrite NEG Urine Bilirubin NEG Urine Urobilinogen LESS THAN 2.0 Urine Leukocyte Esterase NEG Urine RBC 1 Urine WBC LESS THAN 1 Microscopic Urinalysis Comment CULT NOT INDICATED Urine Opiates Screen NEG Urine Barbiturates Screen NEG Urine Amphetamines Screen NEG Urine Benzodiazepines Screen NEG Urine Cocaine Screen NEG Urine Cannabinoids Screen NEG Nasal Screen MRSA (PCR) MRSA NOT DETECTED Test 02/24/17 02/25/17 02/25/17 22:30 04:45 04:46 Total Creatine Kinase 173 Creatine Kinase MB 3.7 Troponin I LESS THAN 0.02 Sodium Level 142 Potassium Level 4.2 Chloride Level 111 Carbon Dioxide Level 19.3 Anion Gap 12 Blood Urea Nitrogen 13 Creatinine 0.65 Estimat Glomerular Filtration 130 Rate Random Glucose 104 Calcium Level 7.5 White Blood Count 10.1 Red Blood Count 4.74 Hemoglobin 13.7 Hematocrit 41.1 Mean Corpuscular Volume 86.7 Mean Corpuscular Hemoglobin 28.8 Mean Corpuscular Hemoglobin 33.2 Concent Red Cell Distribution Width 12.7 Platelet Count 188 Mean Platelet Volume 9.5 Neutrophils (%) (Auto) 76.6 Lymphocytes (%) (Auto) 11.9 Monocytes (%) (Auto) 8.7 Eosinophils (%) (Auto) 2.1 Basophils (%) (Auto) 0.7 Neutrophils # (Auto) 7.7 Lymphocytes # (Auto) 1.2 Monocytes # (Auto) 0.9 Eosinophils # (Auto) 0.2 Basophils # (Auto) 0.1 CBC Comment DIFF FINAL Differential Comment Result Diagram: 02/25/17 0446 02/25/17 0445 Imaging Last Impressions Head CT 02/24/17 1029 Signed Impressions: Service Date/Time: February 11:47 - CONCLUSION: 1. No acute intracranial abnormality is identified. Juan Mckenna MD Chest X-Ray 02/24/17 1029 Signed Impressions: Service Date/Time: February 10:30 - CONCLUSION: Underinflated examination with atelectasis at the lung bases. Otherwise, no acute finding is identified. Cardiac silhouette size is at the upper limits for normal. Roshan Hernandez MD Assessment and Plan Assessment and Plan 51-year-old male with a history of HTN, HL, and DM who presents after multiple seizures during nuclear stress test. Will be admitted to inpatient for further cardiac and neurological workup for new onset seizures. Seizures are possibly arrhythmogenic given that seizures were improved after lidocaine administration , however, he is also status post multiple doses of Ativan. He is improved today and has had no more seizures. Anticipate watching in hospital but should hopefully be able [place] [facility] move to a regular med surg room Problem List: (1) New onset seizure Status: Acute Plan: Patient with new onset seizures during nuclear cardiac stress test as outpatient. He was given antiarrhythmic medications as well as benzos to improve his symptoms. * Admitted to inpatient * Cardiology consult- no further cardiac workup, stop amiodarone * Neurology consult - recommended continuing benzos when necessary and Dilantin 100 mg TID. Stat EEG ordered neurology request which was normal. per Neuro notes some of the tremulous activity may not have been true seizure but he had multiple seizures which were not observed by the same person so the specific symptoms of each seizure are difficult to sort out * Bedrest, seizure and fall precautions * Telemetry * Drug screen in process * TSH within normal limits, electrolytes otherwise unremarkable (corrected calcium 8.5) * Neuro checks q4hr * Prolactin, EtOH, magnesium, CRP pending Hospital course: * Lorazepam 2 mg 2 in ED * Fosphenytoin loading dose administered in ED * Amiodarone 150 mg loading dose with gtt started in ED, stopped today * CT head without contrast unremarkable (2) Cardiac arrhythmia Status: Acute Plan: Patient presents after possible arrhythmogenic seizures during nuclear stress test. EKG showing occasional PVCs without obvious ST changes. Initial troponin negative. * Trended cardiac enzymes and EKGs negative (3) Diabetes mellitus Status: Chronic Plan: Patient is a chronic diabetic with glipizide at home. * Low-dose sliding scale (4) Hyperlipidemia Status: Acute Plan: will treat (5) Hypertension Status: Acute Plan: Patient states he was on lisinopril with unknown dose. * Will start lisinopril at 20mg daily starting 02/25/17. * Clonidine 0.1mg q6hr PRN SBP >180/100 (6) Fluids/Electrolytes/Nutrition/Prophylaxis Status: Acute Plan: Fluids: MIVF, NS at 125 mL/hr, can heplock if he eats well Electrolytes: monitor and replete as needed Nutrition: NPO iniytially pending a bedside swallow, formal swallow evaluation is also ordered DVT Prophylaxis: Heparin 5000U subQ q8hr/bilateral SCDs GI Prophylaxis: Not indicated Physician Certification 2 Midnight Certification Type: Admission for Inpatient Services Order for Inpatient Services The services are ordered in accordance with Medicare regulations or non- Medicare payer requirements, as applicable. In the case of services not specified as inpatient-only, they are appropriately provided as inpatient services in accordance with the 2-midnight benchmark. Estimated LOS (days): 3 3 days is the estimated time the patient will need to remain in the hospital, assuming treatment plan goals are met and no additional complications. Post-Hospital Plan: Not yet determined Problem Qualifiers (1) Cardiac arrhythmia: Qualified Code: I49.8 - Other cardiac arrhythmia (2) Diabetes mellitus: Qualified Code: E11.8 - Type 2 diabetes mellitus with complication, without long-term current use of insulin (3) Hyperlipidemia: Qualified Code: E78.00 - Pure hypercholesterolemia (4) Hypertension: Qualified Code: I10 - Essential hypertension Lizbeth Brown MD February 25, 2017 10:10
[2017-02-25] MEDS ORDERED: PILL SPLITTER OTHER PRN (10:30)
--- NOTE | 2017-02-25 11:05 | PD.CARD.PN ---
Subjective Subjective Remarks More awake No CV complaint No overnight events Objective Medications Current Medications Medications (Trade) Dose Ordered Sig/Costa Route Start Time Stop Time Status Last Admin (Cordarone Inj/ D5W ([place]) Inj) 259 ml @ 0 mls/hr CONTINUOUS IV 02/24/17 10:45 02/24/17 22:30 (Protonix Inj) 40 mg DAILY IV 02/24/17 15:00 02/25/17 09:06 (Heparin Inj) 5,000 units Q8HR SQ 02/24/17 14:45 02/25/17 05:11 Miscellaneous Information 1 Q361D XX 02/24/17 14:30 (Chlorhexidine 2% Cloth) 3 pack Taper DAILY@04 TOP 02/25/17 04:00 02/21/18 03:59 02/25/17 04:00 Chlorhexidine Gluconate 3 pack 3 pack UNSCH PRN TOP 02/24/17 14:30 (NS 1000 ml Inj) 1,000 ml @ 125 mls/hr Q8H IV 02/24/17 15:00 02/25/17 09:05 (Dilantin Inj) 100 mg Q8HR IV 02/24/17 15:00 02/25/17 05:11 (NS Flush) 2 ml UNSCH PRN IV FLUSH 02/24/17 15:30 (NS Flush) 2 ml BID IV FLUSH 02/24/17 21:00 02/24/17 21:00 (D50w (Vial) Inj) 25 ml UNSCH PRN IV PUSH 02/24/17 17:30 (Glucagon Inj) 1 mg UNSCH PRN OTHER 02/24/17 17:30 (Prinivil) 20 mg DAILY PO 02/25/17 09:00 02/25/17 09:06 (Vasotec Inj) 1.25 mg Q6H PRN IV PUSH 02/24/17 17:45 (Lopressor) 12.5 mg BID PO 02/25/17 21:00 (Pill Splitter) 1 ea UNSCH PRN OTHER 02/25/17 10:30 Vital Signs / I&O Vital Signs Date Time Temp Pulse Resp B/P Pulse Ox O2 Delivery O2 Flow Rate FiO2 02/25/17 08:27 100 Nasal Cannula 2.00 02/25/17 04:00 93 02/25/17 04:00 98.6 87 18 130/65 97 02/25/17 00:00 75 02/25/17 00:00 98.4 72 18 114/64 96 02/24/17 20:28 97 3.00 02/24/17 20:00 98.1 82 18 138/73 95 02/24/17 20:00 82 02/24/17 20:00 99 Nasal Cannula 2.00 02/24/17 19:06 84 14 160/89 99 Nasal Cannula 2 02/24/17 18:00 91 21 178/91 99 Nasal Cannula 3 02/24/17 17:00 92 22 162/89 98 Nasal Cannula 3 02/24/17 16:00 88 22 166/78 98 Nasal Cannula 3 02/24/17 15:00 80 22 125/76 98 Nasal Cannula 3 02/24/17 14:00 80 24 118/61 98 Nasal Cannula 3 02/24/17 13:00 77 22 132/79 98 Nasal Cannula 3 I/O 02/24/17 02/24/17 02/24/17 02/25/17 02/25/17 02/25/17 07:00 15:00 23:00 07:00 15:00 23:00 Intake Total 1111 ml 885 ml Output Total 350 ml 1000 ml Balance 761 ml -115 ml Intake Oral 0 ml 0 ml IV Total 1111 ml 885 ml Output Urine Total 350 ml 1000 ml # Bowel Movements 1 0 Physical Exam GENERAL: Well-nourished, well-developed patient. SKIN: Warm and dry. HEAD: Normocephalic. EYES: No scleral icterus. No injection or drainage. NECK: Supple, trachea midline. No JVD or lymphadenopathy. CARDIOVASCULAR: Regular rate and rhythm without murmurs, gallops, or rubs. RESPIRATORY: Breath sounds equal bilaterally. No accessory muscle use. GASTROINTESTINAL: Abdomen soft, non-tender, nondistended. EXTREMITIES: No cyanosis, or edema. NEUROLOGICAL: Awake, alert, and oriented x 3. Non-focal. Laboratory Laboratory Tests Test 02/24/17 02/24/17 02/24/17 02/24/17 15:40 15:45 20:00 22:30 Serum Osmolality 306 MOSM/KG Magnesium Level 2.5 MG/DL Total Creatine Kinase 236 U/L 173 U/L Creatine Kinase MB 4.8 NG/ML 3.7 NG/ML Troponin I LESS THAN 0.02 LESS THAN 0.02 NG/ML NG/ML C-Reactive Protein 0.44 MG/DL Ethyl Alcohol Level LESS THAN 3 MG/DL Urine Color YELLOW Urine Turbidity CLEAR Urine pH 5.0 Urine Specific [place] 1.037 Urine Protein NEG mg/dL Urine Glucose (UA) 1000 mg/dL Urine Ketones 80 mg/dL Urine Occult Blood NEG Urine Nitrite NEG Urine Bilirubin NEG Urine Urobilinogen LESS THAN 2.0 MG/DL Urine Leukocyte Esterase NEG Urine RBC 1 /hpf Urine WBC LESS THAN 1 /hpf Microscopic Urinalysis Comment CULT NOT INDICATED Urine Opiates Screen NEG Urine Barbiturates Screen NEG Urine Amphetamines Screen NEG Urine Benzodiazepines Screen NEG Urine Cocaine Screen NEG Urine Cannabinoids Screen NEG Nasal Screen MRSA (PCR) MRSA NOT DETECTED Test 02/25/17 02/25/17 04:45 04:46 Sodium Level 142 MEQ/L Potassium Level 4.2 MEQ/L Chloride Level 111 MEQ/L Carbon Dioxide Level 19.3 MEQ/L Anion Gap 12 MEQ/L Blood Urea Nitrogen 13 MG/DL Creatinine 0.65 MG/DL Estimat Glomerular Filtration 130 ML/MIN Rate Random Glucose 104 MG/DL Calcium Level 7.5 MG/DL White Blood Count 10.1 TH/MM3 Red Blood Count 4.74 MIL/MM3 Hemoglobin 13.7 GM/DL Hematocrit 41.1 % Mean Corpuscular Volume 86.7 FL Mean Corpuscular Hemoglobin 28.8 PG Mean Corpuscular Hemoglobin 33.2 % Concent Red Cell Distribution Width 12.7 % Platelet Count 188 TH/MM3 Mean Platelet Volume 9.5 FL Neutrophils (%) (Auto) 76.6 % Lymphocytes (%) (Auto) 11.9 % Monocytes (%) (Auto) 8.7 % Eosinophils (%) (Auto) 2.1 % Basophils (%) (Auto) 0.7 % Neutrophils # (Auto) 7.7 TH/MM3 Lymphocytes # (Auto) 1.2 TH/MM3 Monocytes # (Auto) 0.9 TH/MM3 Eosinophils # (Auto) 0.2 TH/MM3 Basophils # (Auto) 0.1 TH/MM3 CBC Comment DIFF FINAL Differential Comment Imaging Last Impressions Head CT 02/24/17 1029 Signed Impressions: Service Date/Time: February 11:47 - CONCLUSION: 1. No acute intracranial abnormality is identified. Jaun Mckenna MD Chest X-Ray 02/24/17 1029 Signed Impressions: Service Date/Time: February 10:30 - CONCLUSION: Underinflated examination with atelectasis at the lung bases. Otherwise, no acute finding is identified. Cardiac silhouette size is at the upper limits for normal. Roshan Hernandez MD Assessment and Plan Problem List: (1) New onset seizure Assessment and Plan: 1. D/C Amio 2. Start Lopressor 12.5mg P BID 3. 2Decho 4. Neurology follow up 5. No need to pursue stress test or LHC at this time 6. OK to transfer to [facility] F/U with Dr. Rosado upon discharge (2) Diabetes mellitus (3) Cardiac arrhythmia (4) Hyperlipidemia (5) Hypertension (6) Fluids/Electrolytes/Nutrition/Prophylaxis Problem Qualifiers (1) Cardiac arrhythmia: Qualified Code: I49.8 - Other cardiac arrhythmia (2) Hypertension: Qualified Code: I10 - Essential hypertension Israel Birch MD February 25, 2017 11:05
--- NOTE | 2017-02-25 14:57 | EC ---
Study Study Date:02/25/2017 STUDY CONCLUSIONS SUMMARY - Procedure narrative: Image quality was fair. The study was technically limited due to poor acoustic window availability. - Left ventricle: The cavity size was normal. Wall thickness was at the upper limits of normal. Systolic function was normal. The estimated ejection fraction was in the range of 60% to 65%. Although no diagnostic regional wall motion abnormality was identified, this possibility cannot be completely excluded on the basis of this study. The study is not technically sufficient to allow evaluation of LV diastolic function. - Tricuspid valve: Moderate regurgitation. If LV function is below 40, please consider prescribing an ACEI or ARB or document rationale for non-use. PROCEDURE DATA STUDY STATUS: Elective. Procedure: Transthoracic echocardiography. Image quality was fair. The study was technically limited due to poor acoustic window availability. Scanning was performed from the parasternal, apical, and subcostal acoustic windows. Study completion: The patient tolerated the procedure well. Transthoracic echocardiography. M-mode, complete 2D, complete spectral Doppler, and color Doppler. Patient status: Inpatient. CARDIAC ANATOMY LEFT VENTRICLE: The cavity size was normal. Wall thickness was at the upper limits of normal. Systolic function was normal. The estimated ejection fraction was in the range of 60% to 65%. Although no diagnostic regional wall motion abnormality was identified, this possibility cannot be completely excluded on the basis of this study. The study is not technically sufficient to allow evaluation of LV diastolic function. AORTIC VALVE: The valve appears to be grossly normal. Doppler: There was no stenosis. No significant regurgitation. MITRAL VALVE: The valve appears to be grossly normal. Doppler: There was no evidence for stenosis. Trace to mild regurgitation. LEFT ATRIUM: The atrium was mildly dilated. PULMONIC VALVE: Not visualized. Doppler: There was no evidence for stenosis. No significant regurgitation. TRICUSPID VALVE: The valve appears to be grossly normal. Doppler: There was no evidence for stenosis. Moderate regurgitation. PERICARDIUM: There was no pericardial effusion. BASIC MEASUREMENTS ADULT NORMAL Left ventricle LV internal dimension, ED, chordal level, 51.3 mm 43-52 PLAX LV internal dimension, ES, chordal level, *40.1 mm 23-38 PLAX Fractional shortening, chordal level, PLAX *22 % >29 LV posterior wall thickness, ED 10.5 mm IVS/LVPW ratio, ED 1.1 <1.3 Ventricular septum Septal thickness, ED 11.5 mm Aortic valve Leaflet separation *27 mm 15-26 Right ventricle RV internal dimension, ED, PLAX *45 mm 19-38 BASIC MEASUREMENTS ADULT NORMAL Aortic valve Leaflet separation *27 mm 15-26 Aorta Root diameter, ED *39 mm 20-37 Left atrium Anterior-posterior dimension, ES *42 mm 19-40 LA/aortic root ratio 1.08 LEGEND: Mean values are shown as u=mean value. Asterisk (*) mayfield values outside specified normal range. Prepared and signed by Benjy Mendez [id number]
--- NOTE | 2017-02-25 15:31 | EKG ---
Date Performed: 02/24/2017 Time Performed: 22:04:04 PTAGE: 51 years EKG: Sinus rhythm BORDERLINE LEFT AXIS DEVIATION BORDERLINE ECG PREVIOUS TRACING : 02/24/2017 17.38 DOCTOR: Israel Birch Interpretating Date/Time 02/25/2017 15:27:43
--- NOTE | 2017-02-25 15:37 | EKG ---
Date Performed: 02/24/2017 Time Performed: 17:38:49 PTAGE: 51 years EKG: Sinus rhythm MODERATE INTRAVENTRICULAR CONDUCTION DELAY BORDERLINE ECG PREVIOUS TRACING : 02/24/2017 10.32 DOCTOR: Israel Birch Interpretating Date/Time 02/25/2017 15:32:27
--- NOTE | 2017-02-25 15:51 | EKG ---
Date Performed: 02/24/2017 Time Performed: 10:32:35 PTAGE: 51 years EKG: SINUS TACHYCARDIA WITH FREQUENT VENTRICULAR PREMATURE COMPLEXES ABNORMAL RHYTHM ECG PREVIOUS TRACING : 02/24/2017 10.29 DOCTOR: Israel Birch Interpretating Date/Time 02/25/2017 15:41:49
--- NOTE | 2017-02-25 16:49 | HHI.PR ---
Review/Management Daily Summary 02/25 doing well alert and oriented, no distress in good spirits spoke with RN i would continue the dilantin 100 mg tid as outpt till I see him in 2 weeks when we shall taper it off Subjective Subjective Comments No acute events reported No headache No chest pain No dyspnea Active Medications Current Medications Medications (Trade) Dose Ordered Sig/Costa Route Start Time Stop Time Status Last Admin Heparin Sodium (Porcine) 5000 units 5,000 units Q8HR SQ 02/24/17 14:45 02/25/17 13:09 (NS 1000 ml Inj) 1,000 ml @ 125 mls/hr Q8H IV 02/24/17 15:00 02/25/17 09:05 (Dilantin Inj) 100 mg Q8HR IV 02/24/17 15:00 02/25/17 13:09 (NS Flush) 2 ml UNSCH PRN IV FLUSH 02/24/17 15:30 (NS Flush) 2 ml BID IV FLUSH 02/24/17 21:00 02/24/17 21:00 (D50w (Vial) Inj) 25 ml UNSCH PRN IV PUSH 02/24/17 17:30 (Glucagon Inj) 1 mg UNSCH PRN OTHER 02/24/17 17:30 (Prinivil) 20 mg DAILY PO 02/25/17 09:00 02/25/17 09:06 (Vasotec Inj) 1.25 mg Q6H PRN IV PUSH 02/24/17 17:45 (Lopressor) 12.5 mg BID PO 02/25/17 21:00 (Pill Splitter) 1 ea UNSCH PRN OTHER 02/25/17 10:30 Allergies Allergies Coded Allergies Daypro (Verified Allergy, Unknown, 02/24/17) Relafen (Verified Allergy, Unknown, 02/24/17) Exam I&O / VS 02/24/17 02/24/17 02/25/17 15:00 23:00 07:00 Intake Total 1111 ml 885 ml Output Total 350 ml 1000 ml Balance 761 ml -115 ml Intake Oral 0 ml 0 ml IV Total 1111 ml 885 ml Output Urine Total 350 ml 1000 ml # Bowel Movements 1 0 Vital Signs Date Time Temp Pulse Resp B/P Pulse Ox O2 Delivery O2 Flow Rate FiO2 02/25/17 16:00 87 02/25/17 16:00 98.2 85 16 143/76 100 02/25/17 11:00 99.1 02/25/17 08:27 100 Nasal Cannula 2.00 02/25/17 07:00 99.3 02/25/17 04:00 93 02/25/17 04:00 98.6 87 18 130/65 97 02/25/17 00:00 75 02/25/17 00:00 98.4 72 18 114/64 96 02/24/17 20:28 97 3.00 02/24/17 20:00 98.1 82 18 138/73 95 02/24/17 20:00 82 02/24/17 20:00 99 Nasal Cannula 2.00 02/24/17 19:06 84 14 160/89 99 Nasal Cannula 2 02/24/17 18:00 91 21 178/91 99 Nasal Cannula 3 02/24/17 17:00 92 22 162/89 98 Nasal Cannula 3 Objective Micro and Labs Laboratory Tests Test 02/24/17 02/24/17 02/25/17 02/25/17 20:00 22:30 04:45 04:46 Nasal Screen MRSA (PCR) MRSA NOT DETECTED Total Creatine Kinase 173 Creatine Kinase MB 3.7 Troponin I LESS THAN 0.02 Sodium Level 142 Potassium Level 4.2 Chloride Level 111 Carbon Dioxide Level 19.3 Anion Gap 12 Blood Urea Nitrogen 13 Creatinine 0.65 Estimat Glomerular Filtration 130 Rate Random Glucose 104 Calcium Level 7.5 White Blood Count 10.1 Red Blood Count 4.74 Hemoglobin 13.7 Hematocrit 41.1 Mean Corpuscular Volume 86.7 Mean Corpuscular Hemoglobin 28.8 Mean Corpuscular Hemoglobin 33.2 Concent Red Cell Distribution Width 12.7 Platelet Count 188 Mean Platelet Volume 9.5 Neutrophils (%) (Auto) 76.6 Lymphocytes (%) (Auto) 11.9 Monocytes (%) (Auto) 8.7 Eosinophils (%) (Auto) 2.1 Basophils (%) (Auto) 0.7 Neutrophils # (Auto) 7.7 Lymphocytes # (Auto) 1.2 Monocytes # (Auto) 0.9 Eosinophils # (Auto) 0.2 Basophils # (Auto) 0.1 CBC Comment DIFF FINAL Differential Comment Aashish Damon MD February 25, 2017 16:49
[2017-02-25] MEDS: METOPROLOL TARTRATE 25 MG TAB PO SCH (20:12)
[2017-02-26] VITALS (9 sets, daily range): BP systolic 106–170; BP diastolic 58–94; PULSE 69–103; RESP 18; TEMP 97.8–98.3; O2SAT 94–95
[2017-02-26] MEDS: PHENYTOIN INJ 100 MG/2 ML VIAL IV SCH ×2 (05:19→13:30)
[2017-02-26] MEDS: HEPARIN SODIUM - SQ 10,000 UNITS/ML VIAL SQ SCH ×2 (05:20→13:29)
[2017-02-26] MEDS: SODIUM CHLOR 0.9% 1000 ML INJ 1,000 ML IV SCH (05:21)
[2017-02-26] MEDS: INSULIN ASPART SUPPLEMENTAL SCALE SQ SCH ×2 (05:59→11:52)
[2017-02-26 07:40] LABS: AUTOMATED NEUTROPHIL # 5.4 TH/MM3 (1.8-7.7); BASOPHIL # 0.1 TH/MM3 (0-0.2); BASOPHIL % 0.8 % (0.0-2.0); EOSINOPHIL # 0.4 TH/MM3 (0-0.4); EOSINOPHIL % 4.7 % (0.0-4.0); HEMATOCRIT 39.3 % (39.0-51.0); HEMO FLAGS DIFF FINAL; LYMPH % 16.6 % (9.0-44.0); LYMPHOCYTE # 1.3 TH/MM3 (1.0-4.8); MEAN CELL VOLUME 85.6 FL (80.0-100.0); MEAN CORPUSCULAR HEMOGLOBIN 28.6 PG (27.0-34.0); MEAN CORPUSCULAR HGB CONC 33.4 % (32.0-36.0); MONO % 10.8 % (0.0-8.0); NEUT % 67.1 % (16.0-70.0); PLATELET COUNT 179 TH/MM3 (150-450); RED BLOOD COUNT 4.59 MIL/MM3 (4.50-5.90); RED CELL DISTRIBUTION WIDTH 12.7 % (11.6-17.2)
[2017-02-26 08:11] LABS: BICARBONATE 21.2 MEQ/L (21.0-32.0); POTASSIUM 3.8 MEQ/L (3.5-5.1)
[2017-02-26] MEDS: LISINOPRIL 20 MG TAB PO SCH (08:52)
[2017-02-26] MEDS: METOPROLOL TARTRATE 25 MG TAB PO SCH (08:52)
[2017-02-26] MEDS: SODIUM CHLORIDE 0.9% FLUSH 10 ML FLUSH IV FLUSH SCH (08:53)
--- NOTE | 2017-02-26 12:09 | HHI.FPPN ---
Subjective Remarks Patient was in and examine this morning. He has no complaints today. Reports amnesia for events after arriving in outpatient cardiac facility up to waking up in hospital in the last 12 days. He reports no chest pain, shortness of breath, dizziness, headache, confusion. He states he would like to go home and his [id number] will pick him up. (Merly Gomez MD R1) Objective Vitals Vital Signs Date Time Temp Pulse Resp B/P Pulse Ox O2 Delivery O2 Flow Rate FiO2 02/26/17 08:00 97.8 103 18 151/87 95 02/26/17 08:00 86 02/26/17 08:00 95 Room Air 02/26/17 05:00 74 02/26/17 04:00 Room Air 02/26/17 04:00 98.3 72 18 146/81 95 02/26/17 04:00 72 02/26/17 03:00 70 02/26/17 02:00 77 02/26/17 01:00 70 02/26/17 00:00 98.1 69 18 106/58 95 02/26/17 00:00 69 02/26/17 00:00 Room Air 02/25/17 23:00 70 02/25/17 22:00 73 02/25/17 21:00 75 02/25/17 20:00 84 02/25/17 20:00 98.6 84 20 154/94 97 02/25/17 18:00 80 02/25/17 17:00 78 02/25/17 16:00 87 02/25/17 16:00 98.2 85 16 143/76 100 I/O 02/25/17 02/25/17 02/25/17 02/26/17 02/26/17 02/26/17 07:00 15:00 23:00 07:00 15:00 23:00 Intake Total 885 ml 1065 ml 240 ml 490 ml Output Total 1000 ml 1100 ml 500 ml 800 ml Balance -115 ml -35 ml -260 ml -310 ml Intake Oral 0 ml 920 ml 240 ml 480 ml IV Total 885 ml 145 ml 10 ml Output Urine Total 1000 ml 1100 ml 500 ml 800 ml # Bowel Movements 0 1 0 (Merly Gomez MD R1) Result Diagram: 02/26/17 0649 02/26/17 0649 Imaging Last Impressions Head CT 02/24/17 1029 Signed Impressions: Service Date/Time: February 11:47 - CONCLUSION: 1. No acute intracranial abnormality is identified. Juan Mckenna MD Chest X-Ray 02/24/17 1029 Signed Impressions: Service Date/Time: February 10:30 - CONCLUSION: Underinflated examination with atelectasis at the lung bases. Otherwise, no acute finding is identified. Cardiac silhouette size is at the upper limits for normal. Roshan Hernandez MD Objective Remarks GENERAL: Obese male sitting in bedside chair comfortably, watching TV. SKIN: Warm and dry. No rashes. HEAD: Atraumatic. Normocephalic. EYES: PERRL. EOMI. No scleral icterus. No injection or drainage. ENT: No nasal bleeding or discharge. Mucous membranes pink and moist. NECK: Trachea midline. No JVD. CARDIOVASCULAR: Regular rate and rhythm. No murmurs, gallops, or rubs. RESPIRATORY: No accessory muscle use. Clear to auscultation. Breath sounds equal bilaterally. GASTROINTESTINAL: Abdomen soft, obese, non-tender. Hepatic and splenic margins not palpable. MUSCULOSKELETAL: Extremities without clubbing, cyanosis, or edema. No obvious deformities. NEUROLOGICAL: Awake and alert. No obvious cranial nerve deficits. Motor grossly within normal limits. Five out of 5 muscle strength in the arms and legs. Normal speech. PSYCHIATRIC: Appropriate mood and affect; insight and judgment normal. Medications and IVs Inpatient Medications Amiodarone HCl 150 mg/Dextrose 100 ml @ 600 mls/hr ONCE ONCE IV Last administered on 02/24/17 11:05; Start 02/24/17 at 10:45; Stop 02/24/17 at 10:54; Status DC Amiodarone HCl 450 mg/Dextrose 259 ml @ 0 mls/hr CONTINUOUS IV Last administered on 02/24/17 22:30; Start 02/24/17 at 10:45; Stop 02/25/17 at 11:54; Status DC Chlorhexidine Gluconate (Chlorhexidine 2% Cloth) 3 pack Taper DAILY@04 TOP Last administered on 02/25/17 04:00; Start 02/25/17 at 04:00; Stop 02/25/17 at 11: 54; Status DC Chlorhexidine Gluconate 3 pack 3 pack UNSCH PRN TOP HYGIENIC CARE; Start at 14:30; Stop 02/25/17 at 11:54; Status DC Dextrose (D50w (Vial) Inj) 25 ml UNSCH PRN IV PUSH HYPOGLYCEMIA - SEE COMMENTS ; Start 02/24/17 at 17:30 Enalaprilat (Vasotec Inj) 1.25 mg Q6H PRN IV PUSH SBP>180, DBP>110; Start 02/24 at 17:45 Fosphenytoin Sodium/Sodium Chloride (Cerebyx Inj/NS Inj) 70 ml @ 280 mls/hr ONCE ONCE IV Last administered on 02/24/17 11:04; Start 02/24/17 at 10:45; Stop 02/24/17 at 10:59; Status DC Glucagon (Glucagon Inj) 1 mg UNSCH PRN OTHER HYPOGLYCEMIA-SEE COMMENTS; Start 02/24/17 at 17:30 Heparin Sodium (Porcine) (Heparin Inj) 5,000 units Q8HR SQ Last administered on 02/26/17 05:20; Start 02/24/17 at 14:45 Insulin Aspart (NovoLOG SUPPLEMENTAL SCALE) 1 ACHS SLIDING SCALE SQ Last administered on 02/26/17 11:52; Start 02/24/17 at 21:00 Lisinopril (Prinivil) 20 mg DAILY PO Last administered on 02/26/17 08:52; Start 02/25/17 at 09:00 Lorazepam 2 mg 2 mg ONCE ONCE IV PUSH ; Start 02/24/17 at 10:30; Stop 02/24/17 at 10:36; Status DC Metoprolol Tartrate (Lopressor) 12.5 mg BID PO Last administered on 02/26/17 08 :52; Start 02/25/17 at 21:00 Miscellaneous (Pill Splitter) 1 ea UNSCH PRN OTHER SEE LABEL COMMENTS; Start at 10:30 Miscellaneous Information 1 Q361D XX ; Start 02/24/17 at 14:30; Stop 02/25/17 at 11:54; Status DC Pantoprazole Sodium (Protonix Inj) 40 mg DAILY IV Last administered on 09:06; Start 02/24/17 at 15:00; Stop 5/5/17 at 11:54; Status DC Phenytoin Sodium (Dilantin Inj) 100 mg Q8HR IV Last administered on 02/26/17 05 :19; Start 02/24/17 at 15:00 Sodium Chloride (NS 1000 ml Inj) 1,000 ml @ 125 mls/hr Q8H IV Last administered on 02/25/17 09:05; Start 02/24/17 at 15:00 Sodium Chloride (NS Flush) 2 ml BID IV FLUSH Last administered on 02/26/17 08: 53; Start 02/24/17 at 21:00 (Merly Gomez MD R1) Urinary Catheter: No (Merly Gomez MD R1) Vascular Central Line Catheter: No (Merly Gomez MD R1) A/P Assessment and Plan 51-year-old male with a history of HTN, HL, and DM who presented 02/24 after multiple seizures during nuclear stress test. He was admitted to inpatient for further cardiac and neurological workup for new onset seizures. Discharge Planning Patient may be discharged today, possibly tomorrow. PT initially recommended rehabilitation, however, patient may have been postictal or confused at initial evaluation. Requesting reevaluation, hopefully discharge to home (Merly Gomez MD R1) Attending Attestation Patient seen and examined. Case reviewed and discussed with the resident team. Agree with plan of care as discussed with me and documented in the resident note. (Lizbeth Brown MD) Problem List: (1) New onset seizure Status: Acute Plan: Patient to be discharged home possibly today, to continue Dilantin 100 mg 3 times a day. He'll follow-up with Dr. Thomas within 1 week for monitoring. Hospital course: Patient with new onset seizures during nuclear cardiac stress test as outpatient. He was given antiarrhythmic medications as well as benzos to improve his symptoms. * Admitted to inpatient * Cardiology consult- no further cardiac workup, stop amiodarone * Neurology consult - recommended continuing benzos when necessary and Dilantin 100 mg TID. Stat EEG ordered neurology request which was normal. per Neuro notes some of the tremulous activity may not have been true seizure but he had multiple seizures which were not observed by the same person so the specific symptoms of each seizure are difficult to sort out * Bedrest, seizure and fall precautions * Telemetry * Drug screen in process * TSH within normal limits, electrolytes otherwise unremarkable (corrected calcium 8.5) * Neuro checks q4hr * Prolactin, EtOH, magnesium, CRP unremarkable. (CRP very mildly elevated) * Lorazepam 2 mg 2 in ED * Fosphenytoin loading dose administered in ED, and Dilantin 100mg TID started * Amiodarone 150 mg loading dose with gtt started in ED, stopped 02/25, switched to metoprolol * CT head without contrast unremarkable (2) Cardiac arrhythmia Status: Acute Plan: Resolved. Cardiology was consulted, patient was placed on amiodarone GTT and transitioned to metoprolol 12.5 mg twice a day by mouth. Echocardiogram was a very limited study, however, EF was 60-65%. He may be discharged with follow- up with Dr. Solis as outpatient. Hospital course: Patient presents after possible arrhythmogenic seizures during nuclear stress test. EKG showing occasional PVCs without obvious ST changes. Initial troponin negative. * Trended cardiac enzymes and EKGs negative (3) Diabetes mellitus Status: Chronic Plan: Patient is a chronic diabetic with glipizide at home. * Low-dose sliding scale as inpatient, continue glipizide as outpatient (4) Hyperlipidemia Status: Acute Plan: Patient states he is on a statin at home, patient may be continued on his statin at home. We'll give atorvastatin 40 mg on discharge (5) Hypertension Status: Acute Plan: Patient states he was on lisinopril with unknown dose. * Will start lisinopril at 20mg daily starting 02/25/17. To continue original dose as outpatient * Clonidine 0.1mg q6hr PRN SBP >180/100 (6) Fluids/Electrolytes/Nutrition/Prophylaxis Status: Acute Plan: Fluids: Discontinued IV fluids on 02/25 Electrolytes: monitor and replete as needed Nutrition: Heart healthy diet DVT Prophylaxis: Heparin 5000U subQ q8hr/bilateral SCDs GI Prophylaxis: Not indicated (Merly Gomez MD R1) Problem Qualifiers (1) Cardiac arrhythmia: Qualified Code: I49.8 - Other cardiac arrhythmia (2) Diabetes mellitus: Qualified Code: E11.8 - Type 2 diabetes mellitus with complication, without long-term current use of insulin (3) Hyperlipidemia: Qualified Code: E78.00 - Pure hypercholesterolemia (4) Hypertension: Qualified Code: I10 - Essential hypertension Merly Gomez MD R1 February 26, 2017 12:09 Lizbeth Brown MD March 01, 2017 10:45
[2017-02-26] MEDS ORDERED: METF1000 PO (14:09)
[2017-02-26] MEDS ORDERED: DILA100C PO (14:09)
[2017-02-26] MEDS ORDERED: METO25TA3 PO (14:09)
[2017-02-26] MEDS ORDERED: LISI-515 PO (14:09)
--- NOTE | 2017-02-26 14:09 | HHI.DCPOC ---
Discharge Care Plan Diagnosis: (1) New onset seizure (2) Cardiac arrhythmia (3) Diabetes mellitus (4) Hypertension Goals to Promote Your Health * To prevent worsening of your condition and complications * To maintain your health at the optimal level Directions to Meet Your Goals Take your medications as prescribed Follow your dietary instruction Follow activity as directed Keep your appointments as scheduled Take your immunizations and boosters as scheduled If your symptoms worsen call your PCP, if no PCP go to Urgent Care Center or Emergency Room Smoking is Dangerous to Your Health. Avoid second hand smoke Call the 24-hour hour crisis hotline for domestic abuse at Merly Gomez MD R1 February 26, 2017 14:09
--- NOTE | 2017-02-26 14:36 | HHI.DS ---
Discharge Summary Admission Date February 24, 2017 at 14:12 Discharge Date: February 26, 2017 Admitting Diagnosis cardiac arrhythmia. New-onset seizure. (1) New onset seizure Diagnosis: Principal Plan: Patient to be discharged home possibly today, to continue Dilantin 100 mg 3 times a day. He'll follow-up with Dr. Thomas within 1 week for monitoring. Hospital course: Patient with new onset seizures during nuclear cardiac stress test as outpatient. He was given antiarrhythmic medications as well as benzos to improve his symptoms. * Admitted to inpatient * Cardiology consult- no further cardiac workup, stop amiodarone * Neurology consult - recommended continuing benzos when necessary and Dilantin 100 mg TID. Stat EEG ordered neurology request which was normal. per Neuro notes some of the tremulous activity may not have been true seizure but he had multiple seizures which were not observed by the same person so the specific symptoms of each seizure are difficult to sort out * Bedrest, seizure and fall precautions * Telemetry * Drug screen in process * TSH within normal limits, electrolytes otherwise unremarkable (corrected calcium 8.5) * Neuro checks q4hr * Prolactin, EtOH, magnesium, CRP unremarkable. (CRP very mildly elevated) * Lorazepam 2 mg 2 in ED * Fosphenytoin loading dose administered in ED, and Dilantin 100mg TID started * Amiodarone 150 mg loading dose with gtt started in ED, stopped 02/25, switched to metoprolol * CT head without contrast unremarkable (2) Cardiac arrhythmia Diagnosis: Principal Plan: Resolved. Cardiology was consulted, patient was placed on amiodarone GTT and transitioned to metoprolol 12.5 mg twice a day by mouth. Echocardiogram was a very limited study, however, EF was 60-65%. He may be discharged with follow- up with Dr. Solis as outpatient. Hospital course: Patient presents after possible arrhythmogenic seizures during nuclear stress test. EKG showing occasional PVCs without obvious ST changes. Initial troponin negative. * Trended cardiac enzymes and EKGs negative (3) Diabetes mellitus Diagnosis: Secondary Plan: Patient is a chronic diabetic with glipizide at home. * Low-dose sliding scale as inpatient, continue glipizide as outpatient (4) Hyperlipidemia Diagnosis: Secondary Plan: Patient states he is on a statin at home, patient may be continued on his statin at home. We'll give atorvastatin 40 mg on discharge (5) Hypertension Diagnosis: Secondary Plan: Patient states he was on lisinopril with unknown dose. * Will start lisinopril at 20mg daily starting 02/25/17. To continue original dose as outpatient * Clonidine 0.1mg q6hr PRN SBP >180/100 Consultants Cardiology, Neurology Procedures EEG 02/24 Brief History Mr Dukes is a 51 year old male with a PMH significant for HTN, HL, and DM who presented via [facility] after multiple seizures during nuclear stress test. Per ED physician, he was at [facility] outpatient facility undergoing stress test with Dr. Solis, when he had syncope and seizure. He was noted to have [facility] administered lidocaine 100mg and Ativan 4mg. Patient was brought to ED and has had a total of 5-6 total seizures the day of admission seemingly one right after the other but none since he was given antiseizure meds. He is current s/p loading dose of fosphenytoin and amiodarone, and is currently receiving amiodarone drip though that is stopped today He endorsed non-specific chest pain and allergies noted in the chart but was post-ictal so no other history could be obtained. Even today he does not remember much of what happened and states he received 2 injections- possibly adenosine and thallium and then went "out" where he doesn't remember anything else until he woke up in the hospital. He denies any personal or family history of seizures or prior head injury, etc. CBC/BMP: 02/26/17 0649 02/26/17 0649 Significant Findings Laboratory Tests Test 02/24/17 02/24/17 02/24/17 02/24/17 10:30 15:40 15:45 22:30 Monocytes (%) (Auto) 8.4 % (0.0-8.0) Chloride Level 109 MEQ/L (98-107) Blood Urea Nitrogen 19 MG/DL (7-18) Random Glucose 197 MG/DL (74-106) Calcium Level 8.1 MG/DL (8.5-10.1) Troponin I LESS THAN 0.02 LESS THAN 0.02 LESS THAN 0.02 NG/ML NG/ML NG/ML (0.02-0.05) (0.02-0.05) (0.02-0.05) Serum Osmolality 306 MOSM/KG (275-295) Creatine Kinase MB 4.8 NG/ML 3.7 NG/ML (0.5-3.6) (0.5-3.6) C-Reactive Protein 0.44 MG/DL (0.00-0.30) Urine Specific [place] 1.037 (1.002-1.035) Urine Glucose (UA) 1000 mg/dL (NEG) Urine Ketones 80 mg/dL (NEG) Test 02/25/17 02/25/17 02/26/17 04:45 04:46 06:49 Chloride Level 111 MEQ/L 110 MEQ/L (98-107) (98-107) Carbon Dioxide Level 19.3 MEQ/L (21.0-32.0) Calcium Level 7.5 MG/DL 7.5 MG/DL (8.5-10.1) (8.5-10.1) Neutrophils (%) (Auto) 76.6 % (16.0-70.0) Monocytes (%) (Auto) 8.7 % (0.0-8.0) 10.8 % (0.0-8.0) Eosinophils (%) (Auto) 4.7 % (0.0-4.0) Creatinine 0.57 MG/DL (0.60-1.30) Random Glucose 141 MG/DL (74-106) Imaging Last Impressions Head CT 02/24/17 1029 Signed Impressions: Service Date/Time: February 11:47 - CONCLUSION: 1. No acute intracranial abnormality is identified. Juan Mckenna MD Chest X-Ray 02/24/17 1029 Signed Impressions: Service Date/Time: February 10:30 - CONCLUSION: Underinflated examination with atelectasis at the lung bases. Otherwise, no acute finding is identified. Cardiac silhouette size is at the upper limits for normal. Roshan Hernandez MD PE at Discharge GENERAL: Obese male sitting in bedside chair comfortably, watching TV. SKIN: Warm and dry. No rashes. HEAD: Atraumatic. Normocephalic. EYES: PERRL. EOMI. No scleral icterus. No injection or drainage. ENT: No nasal bleeding or discharge. Mucous membranes pink and moist. NECK: Trachea midline. No JVD. CARDIOVASCULAR: Regular rate and rhythm. No murmurs, gallops, or rubs. RESPIRATORY: No accessory muscle use. Clear to auscultation. Breath sounds equal bilaterally. GASTROINTESTINAL: Abdomen soft, obese, non-tender. Hepatic and splenic margins not palpable. MUSCULOSKELETAL: Extremities without clubbing, cyanosis, or edema. No obvious deformities. NEUROLOGICAL: Awake and alert. No obvious cranial nerve deficits. Motor grossly within normal limits. Five out of 5 muscle strength in the arms and legs. Normal speech. PSYCHIATRIC: Appropriate mood and affect; insight and judgment normal. Hospital Course Patient was admitted to [facility] due to new-onset seizures x 5 prior to admission. He was stable with no new seizures after fosphenytoin loading and initiation of Dilantin by IV. He was also started on amiodarone drip in ED. On day 2 of stay he was asymptomatic aside from amnesia regarding last 24 hr. Cardiology was consulted, Dr. Ramos evaluated patient and recommended discontinuing amiodarone drip and close f/u with Dr. Solis (patient's wick tender) upon discharge. Neurology was consulted, evaluated patient. EEG was ordered and read as unremarkable. CT at ED arrival was also unremarkable. Lab work-up was unremarkable including electrolytes, prolactin, cardiac enzymes. He was transferred to [facility] on day 2 and had no additional events by day 3. PT initially evaluated patient while post-ictal and recommended rehab; re-evaluation on day was performed and patient was cleared for discharge to home. He was thoroughly counseled on seizure precautions and understands he cannot drive or operative heavy machinery/perform heavy lifting until cleared to do so by a physician. He expressed understanding and agreement with this; was discharged in stable condition with f/u plans with neurology, cardiology, and PCP. Of note, patient was on Invokamet XR as outpatient. It is a contraindication to take Dilantin with the canagliflozin component of this combo pill; therefore patient was discharged with Rx for metformin 1000mg daily and told not to take Invokamet anymore. He may have titration of this medication as needed with his PCP. Pt Condition on Discharge: Stable Discharge Disposition: Discharge Home Discharge Instructions DIET: Follow Instructions for: Heart Healthy Diet Activities you can perform: See Additionl Instruction Activities to Avoid: Strenuous Activity, Driving Other Activity Instructions: No driving, no heavy machinery, unclear cleared by neurology Follow up Referrals: Cardiology - 1 Week with Richard Solis MD Neurology - 1 Week with Aashish Damon MD PCP Follow-up - 2 Weeks New Medications: Metformin (Metformin) 1,000 Mg Tab 1000 MG PO DAILY With a meal Blood Sugar Management #30 Ref 0 TAB Phenytoin Extended (Dilantin) 100 Mg Cap 100 MG PO TID Control Seizures #90 Ref 0 CAP Lisinopril (Lisinopril) 20 Mg Tab 20 MG PO DAILY #30 TAB Metoprolol Tartrate (Metoprolol Tartrate) 25 Mg Tab 12.5 MG PO BID #60 TAB Discontinued Medications: Canagliflozin-Metformin ER 24 HR (Invokamet Xr) 150-1,000 mg Tab 1 TAB PO DAILY Blood Sugar Management #30 Ref 0 TAB Merly Gomez MD R1 February 26, 2017 14:36
== END 2017-02-26 14:50 | disposition home or self-care (01) | DRG 101 ==
LOC: EDBD → NEPE 10:22 → NEDA 14:12 → HIMN 19:45 → HCIS 02-25 15:13
PROVIDERS: ADMIT Family Medicine; ATTEND Family Medicine
DX: R56.9 Unspecified convulsions (principal); I10 Essential (primary) hypertension; E11.9 Type 2 diabetes mellitus without complications; Z79.84 Long term (current) use of oral hypoglycemic drugs; I49.9 Cardiac arrhythmia, unspecified; E78.5 Hyperlipidemia, unspecified
CPT/HCPCS: 70450; 71010; 80048; 80053; 80307; 81001; 82330; 82550; 82552; 82948; 83735; 83930; 84100; 84146; 84443; 84484; 85025; 85610; 85730; 86140; 87641; 93005; 93306; 95819; 96365; 96375; 96376; C9113; J0282; J1165; J1644; J1815; J2060; J7030; J7060; Q2009